=== PATIENT | male | born 1950 | race Caucasian/White ===

== ENCOUNTER 2019-03-29 07:42 | Inpatient (IN) | payer OTHER ==
[~2019-03-29] VITALS: Ht 172.7 cm; Wt 73.9 kg
--- NOTE | 2019-03-29 08:14 | PHYS DOC ---
Adult General Chief Complaint Chief Complaint: depressed HPI HPI 68-year-old male arrives via EMS from his care facility for suicidal ideation. When I asked the patient if he's having thoughts of hurting himself and he denies this. The patient does admit that he is depressed. He states that he has several sores and is not able to get up and walk around and this is very troublesome for him. He wants to get better medically. He was tearful couple times during our discussion. Patient was in a less than ideal care situation recently. He has multiple bed sores. The patient denies any intent to harm himself. He has no plan. He denies fever or chills. Review of Systems Review of Systems Constitutional: Denies fever or chills. Generalized weakness. [] Eyes: Denies change in visual acuity, redness, or eye pain [] HENT: Denies nasal congestion or sore throat [] Respiratory: Denies cough or shortness of breath [] Cardiovascular: No additional information not addressed in HPI [] GI: Denies abdominal pain, nausea, vomiting, bloody stools or diarrhea [] : Denies dysuria or hematuria [] Musculoskeletal: Denies back pain or joint pain [] Integument: Multiple sores[] Neurologic: Denies headache, focal weakness or sensory changes [] Endocrine: Denies polyuria or polydipsia [] All other systems were reviewed and found to be within normal limits, except as documented in this note. Physical Exam Physical Exam Constitutional: Well developed, well nourished, no acute distress, non-toxic appearance. [] HENT: Normocephalic, atraumatic, bilateral external ears normal, oropharynx moist, no oral exudates, nose normal. [] Eyes: PERRLA, EOMI, conjunctiva normal, no discharge. [] Neck: Normal range of motion, no tenderness, supple, no stridor. [] Cardiovascular:Heart rate regular rhythm, no murmur [] Lungs & Thorax: Bilateral breath sounds clear to auscultation [] Abdomen: Bowel sounds normal, soft, no tenderness, no masses, no pulsatile masses. [] Skin: Multiple pressure ulcers with clean pressure reduction dressings. Bilateral hips, knees. Grade 1 pressure ulcer right ankle, buttocks without dressings. Grade 2 ulcer posterior scalp.[] Back: No tenderness, no CVA tenderness. [] Extremities: No tenderness, no cyanosis, no clubbing, ROM intact, no edema. [] Neurologic: Alert and oriented X 3, normal motor function, normal sensory function, no focal deficits noted. [] Psychologic: Affect normal, judgement normal, mood depressed. [] EKG EKG [] Radiology/Procedures Radiology/Procedures [] Course & Med Decision Making Course & Med Decision Making Pertinent Labs and Imaging studies reviewed. (See chart for details) Review of the charts in by the care facility says the patient has been yelling out at night. He is making statements like I want to . I need to . He was only at this facility for 1 day. The patient is on Seroquel, but no other psychiatric medications. He does have Parkinson's disease and is on carbidopa levodopa. The patient's labs have some abnormalities, but no acute concerns. She labs for more details. The psychiatric evaluation does recommend involuntary admission. As the patient's decubitus ulcers prevent him from being admitted to a psychiatric facility. He will need to go to a more skilled facility or her stay in the hospital to improve his wounds prior to any psychiatric admission. We will see if he can be admitted to [facility]. I spoke with Dr. Mcdowell and she has accepted the patient for transfer and admission to [facility]. The patient is willing to go. Administration determined it would be more appropriate for the patient to stay at this facility with consults to wound care and possibly psych. I spoke with Dr. Freedman about the patient and he has accepted him for admission. The patient was agreeable with this plan as well. [] Dragon Disclaimer Dragon Disclaimer This electronic medical record was generated, in whole or in part, using a voice recognition dictation system. Departure Departure: Impression: Primary Impression: Decubitus ulcer Additional Impression: Depression Disposition: ADMITTED INPATIENT Admitting Physician: Young Freedman Condition: STABLE Referrals: JENNIFER CARRION MD (PCP) Problem Qualifiers Primary Impression: Decubitus ulcer Pressure injury location: hip Pressure injury stage: unstageable Additional Impression: Depression Depression Type: major depressive disorder Major depression recurrence: unspecified whether recurrent Active/Remission status: currently active Major depression episode severity: moderate Qualified Codes: F32.1 - Major depressive disorder, single episode, moderate PATRICIA LOPES DO Mar 29, 2019 08:14
[2019-03-29 08:33] LABS: BASO # 0.1 x10^3/uL (0.0-0.2); BASO % 1 % (0-3); EOS # 0.2 x10^3/uL (0.0-0.7); EOS % 3 % (0-3); HEMATOCRIT 31.2 % (39.0-53.0); HEMOGLOBIN 10.1 g/dL (13.0-17.5); LYMPH % 12 % (24-48); MEAN CORPUSCULAR HEMOGLOBIN 28 pg (25-35); MEAN CORPUSCULAR HGB CONC 32 g/dL (31-37); MEAN CORPUSCULAR VOLUME 86 fL (79-100); MONO # 0.9 x10^3/uL (0.0-1.1); MONO % 11 % (0-9); NEUT % 74 % (31-73); PLATELET COUNT 183 x10^3/uL (140-400); RED BLOOD COUNT 3.65 x10^6/uL (4.30-5.70); RED CELL DISTRIBUTION WIDTH 15.9 % (11.5-14.5); WHITE BLOOD COUNT 8.1 x10^3/uL (4.0-11.0)
[2019-03-29 08:37] LABS: ALBUMIN 2.2 g/dL (3.4-5.0); ALBUMIN/GLOBULIN RATIO 0.4 (1.0-1.7); CALCIUM 8.2 mg/dL (8.5-10.1); CREATININE 1.2 mg/dL (0.7-1.3); GFR 60.2; TOTAL BILIRUBIN 0.3 mg/dL (0.2-1.0); TOTAL PROTEIN 7.3 g/dL (6.4-8.2)
[2019-03-29 09:43] LABS: BILIRUBIN,URINE NEG (NEG); CLARITY,URINE HAZY; COLOR,URINE YELLOW; GLUCOSE,URINE NEG (NEG); UROBILINOGEN,URINE 0.2 mg/dL (0.2 mg/dL)
[2019-03-29 09:44] LABS: BACTERIA,URINE 0 /HPF (0-FEW); NITRITE,URINE NEG (NEG); RBC,URINE >40 /HPF (0-2); SQUAMOUS EPITHELIAL CELL,UR OCC /LPF; WBC,URINE 0 /HPF (0-4)
[2019-03-29] MEDS: LORazepam 1 MG TABLET PO ONE ×2 (12:45→13:43)
[2019-03-29 15:09] VITALS: BP 150/78
[2019-03-29] MEDS ORDERED: ATOR20TA58 PO (15:28)
[2019-03-29] MEDS ORDERED: ROPI4TAB6 PO (16:13)
[2019-03-29] MEDS ORDERED: ASCO500C PO (16:13)
[2019-03-29] MEDS ORDERED: CARB1TAB47 PO (16:13)
[2019-03-29] MEDS ORDERED: MULT1TAB90 PO (16:13)
[2019-03-29] MEDS ORDERED: QUET25TA5 PO (16:13)
--- NOTE | 2019-03-29 18:11 | HP ---
ADMIT DATE: 03/29/2019 HISTORY OF PRESENT ILLNESS: The patient is a 68-year-old male patient who apparently was discharged from [facility] recently and was admitted to [facility]. He was sent to the Emergency Room of [facility] for suicidal ideation; however, the patient himself has denied any thoughts of hurting himself. The patient does admit that he is depressed and he stated that he has several sores and he is not able to get up or walk around. This is very troublesome for him. He wants to get better medically. He was tearful a couple of times during discussion. He denies any intent to harm himself. He has no plans. He denies any other complaint other than being weak and unable to walk. PAST MEDICAL HISTORY: Significant for Parkinson's disease, hyperlipidemia, has restless leg syndrome, unspecified psychosis, has multiple decubitus ulcers. PAST SURGICAL HISTORY: Unremarkable. ALLERGIES: He has no known drug allergies. MEDICATIONS: He is currently on following medications: He is on atorvastatin calcium 20 mg once a day, quetiapine fumarate 25 mg at bedtime, carbidopa/levodopa 25/100 one tablet 4 times a day, ropinirole 4 mg twice a day, ascorbic acid 500 mg once a day, and multivitamin with mineral 1 tablet once a day. FAMILY HISTORY: Unremarkable. SOCIAL HISTORY: He apparently lives in a house that is uninhabitable. He has no family. He makes his own decisions. 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 REVIEW OF SYSTEMS: As per history of present illness. PHYSICAL EXAMINATION: GENERAL: On examining him, he looked somewhat pale, but no jaundice, cyanosis or thyromegaly. No jugular venous distention. No limb edema. VITAL SIGNS: His heart rate was 80, blood pressure was around 150/78, temperature was 98.4, respiratory rate was 18 and oxygen saturation was 98% on room air. HEAD, EYES, EARS, NOSE AND THROAT: Showed normocephalic, atraumatic. NECK: Supple. HEART: Showed normal first and second heart sounds. No gallop or murmur. CHEST: Clear to auscultation. No crepitation, rhonchi. ABDOMEN: Distended, soft, nontender. No guarding or rigidity. No organomegaly. All hernial orifice intact. Bowel sounds normal. NEUROLOGIC: He is awake, alert, but very delusional and hallucinating. All his cranial nerves are intact. He moves his upper extremities to much good extent than lower extremities. He has decubitus ulcers in the inner and outer aspect of the left knee, left trochanteric area as well as right trochanteric area. LABORATORY DATA: His lab work showed a white cell count of 8100, hemoglobin 10, hematocrit 31, MCV 86, and platelet count of 183,000 with normal manual differential. Serum sodium was 139, potassium 4, chloride 104, bicarbonate 29, anion gap of 6, BUN 16, creatinine 1.2, estimated GFR was 60 mL per minute, his glucose was 113, calcium was 8.2. Total bilirubin, AST, ALT, alkaline phosphatase were normal. Total protein was 7.3, albumin was 2.2. His urinalysis showed the urine was yellow, hazy with a pH of 7, specific gravity of 1.010. The urine was negative for protein, glucose, ketones, large amount of blood, negative for nitrite and leukocyte esterase. There is more than 40 rbc's, no wbc's, and no bacteria. IMPRESSION: In summary, this is a 68-year-old male patient with Parkinson's disease and marked debility and weakness. He was admitted on account of suicidal ideation. The patient himself admits to being depressed given the fact that he is weak and unable to walk with developed multiple bedsores, however, he has no intent to harm himself. The nursing staff, however, stated that he is delusional and hallucinating, talking to people that was not there. He has multiple sores on both trochanteric area as well as both knee joints. PLAN: My plan is obviously to x-ray his hips and knee joints and check his sedimentation rate and CRP and perhaps order a bone scan and consult Dr. Ramos to evaluate the patient for his delusions and hallucinations as well as possible suicidal ideation. We will continue obviously with all of his medications. COCO HOOKS MD DR: XIOMARA/que JOB#: [id number] / [id number]
--- NOTE | 2019-03-29 18:41 | PDOC ---
Exam Note: Ignacio Note: Please also refer to the separate dictated note~for this date of service dictated separately.~Patient seen individually. Discussed the patient with Nursing staff reviewed the chart.~Reviewed interim history and current functioning. Reviewed vital signs,~Labs/ Radiology~and current medications noted below. Continue current treatment with the changes noted in the dictated addendum note Assessment: Vital Signs/I&O: Vital Signs Date Time Temp Pulse Resp B/P (MAP) Pulse Ox O2 Delivery O2 Flow Rate FiO2 03/29/19 15:09 98.4 80 18 150/78 (102) 98 Room Air Labs: Laboratory Tests Test 03/29/19 08:05 03/29/19 08:50 White Blood Count 8.1 x10^3/uL (4.0-11.0) Red Blood Count 3.65 x10^6/uL (4.30-5.70) L Hemoglobin 10.1 g/dL (13.0-17.5) L Hematocrit 31.2 % (39.0-53.0) L Mean Corpuscular Volume 86 fL (79-100) Mean Corpuscular Hemoglobin 28 pg (25-35) Mean Corpuscular Hemoglobin Concent 32 g/dL (31-37) Red Cell Distribution Width 15.9 % (11.5-14.5) H Platelet Count 183 x10^3/uL (140-400) Neutrophils (%) (Auto) 74 % (31-73) H Lymphocytes (%) (Auto) 12 % (24-48) L Monocytes (%) (Auto) 11 % (0-9) H Eosinophils (%) (Auto) 3 % (0-3) Basophils (%) (Auto) 1 % (0-3) Neutrophils # (Auto) 6.0 x10^3uL (1.8-7.7) Lymphocytes # (Auto) 1.0 x10^3/uL (1.0-4.8) Monocytes # (Auto) 0.9 x10^3/uL (0.0-1.1) Eosinophils # (Auto) 0.2 x10^3/uL (0.0-0.7) Basophils # (Auto) 0.1 x10^3/uL (0.0-0.2) Sodium Level 139 mmol/L (136-145) Potassium Level 4.0 mmol/L (3.5-5.1) Chloride Level 104 mmol/L (98-107) Carbon Dioxide Level 29 mmol/L (21-32) Anion Gap 6 (6-14) Blood Urea Nitrogen 16 mg/dL (8-26) Creatinine 1.2 mg/dL (0.7-1.3) Estimated GFR (Cockcroft-Gault) 60.2 BUN/Creatinine Ratio 13 (6-20) Glucose Level 113 mg/dL (70-99) H Calcium Level 8.2 mg/dL (8.5-10.1) L Total Bilirubin 0.3 mg/dL (0.2-1.0) Aspartate Amino Transferase (AST) 45 U/L (15-37) H Alanine Aminotransferase (ALT) 14 U/L (16-63) L Alkaline Phosphatase 74 U/L (46-116) Total Protein 7.3 g/dL (6.4-8.2) Albumin 2.2 g/dL (3.4-5.0) L Albumin/Globulin Ratio 0.4 (1.0-1.7) L Urine Collection Type Unknown Urine Color Yellow Urine Clarity Hazy Urine pH 7.0 Urine Specific [place] 1.010 Urine Protein Neg (NEG-TRACE) Urine Glucose (UA) Neg mg/dL (NEG) Urine Ketones (Stick) Neg mg/dL (NEG) Urine Blood Large (NEG) Urine Nitrite Neg (NEG) Urine Bilirubin Neg (NEG) Urine Urobilinogen Dipstick 0.2 mg/dL (0.2 mg/dL) Urine Leukocyte Esterase Neg (NEG) Urine RBC >40 /HPF (0-2) Urine WBC 0 /HPF (0-4) Urine Squamous Epithelial Cells Occ /LPF Urine Bacteria 0 /HPF (0-FEW) Current Medications: Meds: Current Medications Medications (Trade) Dose Ordered Sig/Rajendra Route PRN Reason Start Time Stop Time Status Last Admin Dose Admin Lorazepam (Ativan) 1 mg 1X ONCE PO 03/29/19 12:45 03/29/19 12:48 DC 03/29/19 13:44 I have reviewed the current psychotropics carefully including drug interactions. Risk benefit ratio favors no change other than as noted in my dictated progress note. Diagnosis: Problems: (1) Anxiety disorder (2) Major depressive disorder, recurrent episode MARCELA AWAN MD Mar 29, 2019 18:41
[2019-03-29 19:15] VITALS: BP 102/67
[2019-03-29] MEDS: rOPINIRole 2 MG TABLET. PO SCH (20:49)
[2019-03-29] MEDS: QUEtiapine 25 MG TABLET. PO SCH (20:50)
--- NOTE | 2019-03-29 22:02 | RAD ---
AP pelvis to include AP and lateral radiographs of both hips 03/29/2019 CLINICAL HISTORY: Bilateral decubitus ulcers. An AP digital radiograph of the pelvis to include both hips was obtained. AP and lateral digital radiographs of both hips were obtained. No pelvic bone fracture is seen. No fracture or dislocation of either hip is noted. Mild to moderate degenerative changes are seen involving both SI joints and both hips. Atherosclerotic calcification of the common iliac arteries and their branches is noted. There is no radiographic evidence of osteomyelitis. IMPRESSION: No acute osseous abnormality is seen. Electronically signed by: Jeff Carrera MD (03/29/2019 9:59 PM) [facility]
--- NOTE | 2019-03-29 22:05 | RAD ---
3 view bilateral knee radiographs 03/29/2019 CLINICAL HISTORY: Bilateral knee pain. AP, lateral and oblique digital radiographs of both knees were obtained. No fracture or dislocation of either knee is seen. Surgical clips are seen posterior to the left knee. Mild degenerative changes are seen involving all 3 compartments of the left knee. Atherosclerotic calcification of the popliteal arteries is noted. IMPRESSION: No acute osseous abnormality is seen. Electronically signed by: Jeff Carrera MD (03/29/2019 10:02 PM) [facility]
[2019-03-29] MEDS: hydrOXYzine HCL 25 MG TABLET PO PRN (23:36)
[2019-03-29] MEDS: CARBIDOPA/LEVODOPA 25/100MG TABLET PO SCH (23:36)
[2019-03-29] MEDS: traZODone 50 MG TABLET. PO PRN (23:36)
[2019-03-30] MEDS: CARBIDOPA/LEVODOPA 25/100MG TABLET PO SCH ×3 (06:13→17:01)
[2019-03-30 06:19] VITALS: BP 124/67
[2019-03-30 07:20] LABS: C REACTIVE PROTEIN 66.8 mg/L (0-3.3); CALCIUM 8.1 mg/dL (8.5-10.1); GFR 74.3; POTASSIUM 3.6 mmol/L (3.5-5.1)
[2019-03-30 10:37] VITALS: BP 156/78
[2019-03-30] MEDS: MULTIVITAMIN with MINERAL TABLET. PO SCH (10:53)
[2019-03-30] MEDS: rOPINIRole 2 MG TABLET. PO SCH ×2 (10:53→21:38)
[2019-03-30] MEDS: ASCORBIC ACID 500 MG TABLET PO SCH (10:53)
[2019-03-30] MEDS: hydrOXYzine HCL 25 MG TABLET PO PRN ×2 (10:54→17:02)
[2019-03-30] MEDS: ATORVASTATIN CALCIUM 20 MG TABLET PO SCH (10:54)
--- NOTE | 2019-03-30 12:00 | PN ---
DATE: 03/29/2019 SUBJECTIVE: The patient is resting, slightly propped up in bed, in no apparent distress, continued to be confused, hallucinating; however, denied any abdominal pain. He has multiple wounds in his right trochanteric area and both knee joints. PHYSICAL EXAMINATION: GENERAL: When I examined him this morning, he looked pale, but no jaundice, cyanosis or thyromegaly. No jugular venous distention. No lower limb edema. VITAL SIGNS: His heart rate was 70, blood pressure was 156/78, temperature was 97.5, respiratory rate 20, and oxygen saturation was 97%. HEAD, EYES, EARS, NOSE AND THROAT: Showed normocephalic, atraumatic. NECK: Supple. HEART: Showed normal first and second heart sounds with no gallop, rub or murmur. CHEST: Clear to auscultation. No crepitation or rhonchi. ABDOMEN: Distended, soft, nontender. No guarding or rigidity. No organomegaly. All hernial orifices intact. Bowel sounds normal. NEUROLOGIC: He was awake, alert, confused. All his cranial nerves are intact. He moves upper extremities to much good extent than lower extremities. He is mostly bed bound. His intake over the last 24 hours and output are incompletely recorded. LABORATORY DATA: Lab work showed a serum sodium 139, potassium 3.6, chloride 105, bicarbonate 26, anion gap of 8, BUN 21, creatinine 1, estimated GFR was 74 mL per minute, his glucose was 88, calcium was 8.1. C-reactive protein was 6.8. His sedimentation rate was 72 mm per hour. Urinalysis was essentially unremarkable. ASSESSMENT: This is a 68-year-old male patient who was admitted with possible suicidal ideation, although the patient himself admits to being depressed, given the fact that he is weak and unable to walk, developed multiple bedsores; however, he has no intent of harming himself according to him. The patient, however, is delusional, hallucinating, talking to people that are not there, and he has multiple medical problems including: A. Parkinson's disease. B. Functional paraplegia. C. Multiple pressure sores on both trochanteric area and both knee joints. My plan is to await result of the bone scan to see if there is any evidence of osteomyelitis and to start him on IV antibiotic if necessary. We did x-rays of his hip and pelvis, it showed that the patient has no fracture or dislocation of either hip is noted. [id number] degenerative changes are seen involving both thigh joints and both hips. He has atherosclerotic calcification of the common iliac arteries and their branches noted. There is no radiographic evidence for osteomyelitis and we did x-rays of both knee joints and again no evidence of osseous abnormalities seen. PLAN: To continue with all these. We will continue with all her medication and we did consult Dr. Ramos as he is delusional and hallucinating. COCO HOOKS MD DR: XIOMARA/que JOB#: [id number] / [id number]
[2019-03-30 15:10] VITALS: BP 117/76
--- NOTE | 2019-03-30 19:02 | PDOC ---
Exam Note: Ignacio Note: Please also refer to the separate dictated note~for this date of service dictated separately.~Patient seen individually. Discussed the patient with Nursing staff reviewed the chart.~Reviewed interim history and current functioning. Reviewed vital signs,~Labs/ Radiology~and current medications noted below. Continue current treatment with the changes noted in the dictated addendum note Assessment: Vital Signs/I&O: Vital Signs Date Time Temp Pulse Resp B/P (MAP) Pulse Ox O2 Delivery O2 Flow Rate FiO2 03/30/19 15:10 97.3 73 20 117/76 (90) 97 Room Air I & O 03/29/19 03/29/19 03/30/19 15:00 23:00 07:00 Intake Total 300 ml Balance 300 ml Labs: Laboratory Tests Test 03/30/19 06:46 Erythrocyte Sedimentation Rate 72 (0-15) H Sodium Level 139 mmol/L (136-145) Potassium Level 3.6 mmol/L (3.5-5.1) Chloride Level 105 mmol/L (98-107) Carbon Dioxide Level 26 mmol/L (21-32) Anion Gap 8 (6-14) Blood Urea Nitrogen 21 mg/dL (8-26) Creatinine 1.0 mg/dL (0.7-1.3) Estimated GFR (Cockcroft-Gault) 74.3 Glucose Level 88 mg/dL (70-99) Calcium Level 8.1 mg/dL (8.5-10.1) L C-Reactive Protein 66.8 mg/L (0-3.3) H Current Medications: Meds: Current Medications Medications (Trade) Dose Ordered Sig/Rajendra Route PRN Reason Start Time Stop Time Status Last Admin Dose Admin Atorvastatin Calcium (Lipitor) 20 mg DAILY PO 03/30/19 09:00 03/30/19 10:55 Multivitamins/ Calcium (Thera-M Plus) 1 tab DAILY PO 03/30/19 09:00 03/30/19 10:55 Quetiapine Fumarate (SEROquel) 25 mg QHS PO 03/29/19 21:00 03/29/19 20:52 Ascorbic Acid (Vitamin C) 500 mg DAILY PO 03/30/19 09:00 03/30/19 10:55 Carbidopa/Levodopa (Sinemet 25/100) 1 tab [id number] PO 03/30/19 00:00 03/30/19 17:02 Ropinirole HCl (Requip) 4 mg BID PO 03/29/19 21:00 03/30/19 10:55 Olanzapine (ZyPREXA ZYDIS) 5 mg PRN Q2HR PRN PO PSYCHOSIS 03/29/19 22:00 03/30/19 17:02 Hydroxyzine HCl (Atarax) 25 mg PRN Q4HRS PRN PO ANXIETY / AGITATION 03/29/19 22:00 03/30/19 17:02 Trazodone HCl (Desyrel) 50 mg PRN QHS PRN PO INSOMNIA, MAY REPEAT X1 03/29/19 22:00 03/29/19 23:36 I have reviewed the current psychotropics carefully including drug interactions. Risk benefit ratio favors no change other than as noted in my dictated progress note. Diagnosis: Problems: (1) Dementia, vascular, with delusions (2) Dementia, vascular, with depression (3) Dementia in Alzheimer's disease with delusions (4) Dementia in Alzheimer's disease with depression (5) Impulse control disorder (6) Major depressive disorder, recurrent episode (7) Anxiety disorder MARCELA AWAN MD Mar 30, 2019 19:02
[2019-03-30 19:04] VITALS: BP 135/74
[2019-03-30] MEDS: traZODone 50 MG TABLET. PO PRN (21:38)
[2019-03-30] MEDS: QUEtiapine 25 MG TABLET. PO SCH (21:38)
--- NOTE | 2019-03-31 00:11 | CONS ---
DATE OF CONSULTATION: 03/29/2019 PSYCHIATRIC CONSULTATION This late entry 03/29/2019 covers elements not covered in my initial note 03/29/2019. IDENTIFYING DATA: The patient is a 68-year-old male seen on [address] [place] [address] for a psychiatric consult requested by Dr. Freedman on account of the patient's confusion, hallucinations, agitation, restlessness. The patient was seen individually, discussed with nursing staff, reviewed the chart. CHIEF COMPLAINT: "I need to leave." The patient was lying in bed, constantly moving, trying to get out of his bed, possibly actively hallucinating at times. HISTORY OF PRESENT ILLNESS: The patient was apparently discharged from [facility] recently admitted to [facility]. While at [facility], he had expressed suicidal ideation per staff, though the patient denies any thoughts of hurting himself. He does admit to being depressed about the fact that he has several sores and not able to get up or walk around. He has been tearful at times. Reportedly, he was hallucinating, talked about having a cord around the neck of dog. REVIEW OF SYSTEMS: No clear history of bipolar disorder. PAST PSYCHIATRIC HISTORY: Positive for progressive memory deficits hallucinations, depressive symptoms. MEDICAL HISTORY: Positive for Parkinson's disease, hyperlipidemia, restless leg syndrome, multiple decubitus ulcers. PAST SURGICAL HISTORY: Unremarkable. ALLERGIES: Negative. CURRENT PSYCHOTROPICS: Seroquel 25 mg at bedtime. He is also on Sinemet, Requip. FAMILY HISTORY: Noncontributory. SOCIAL HISTORY: The patient reportedly lives in a house that is uninhabitable. He has no family, but as I questioned him, he said he has a sister Melody, who lives in [place], [place], but she uses drugs and he has no contact with her. He states staff from [facility] come into his home to assist him. REVIEW OF SYSTEMS: Ambulation impaired. No CV, , pulmonary, eye, ENT system symptoms on review. Reliability poor. MENTAL STATUS EXAMINATION: The patient is oriented to himself. He felt the year was 1998, felt Harris was the president later corrected it to President Solo. Speech coherent, rapid, abstraction fair, computation impaired, language function intact, attention span short. Mood and affect remains labile. LABORATORY DATA: Reviewed. IMPRESSION: Major neurocognitive disorder, multifactorial, possibly Lewy body, Alzheimer, vascular with delusion, depression, behavioral disturbance; anxiety disorder, unspecified; impulse control disorder, unspecified. Rest as above plan. RECOMMENDATIONS: From a psychiatric standpoint, we will go ahead and add Zyprexa p.r.n. 2.5 mg q. 2 hours p.r.n. psychosis, agitation. Around midnight nursing staff had called me, he was increasingly agitated despite the Zyprexa p.r.n., we will increase it to 5 mg with a maximum of 20 mg in 24 hours and added trazodone 50 mg at bedtime p.r.n., may repeat x 1 and hydroxyzine p.r.n. We will make further adjustments as clinically indicated. Dr. Freedman, thank you for the opportunity to participate in your patient's care. We will follow with you. MARCELA AWAN MD DR: UBALDO/que JOB#: [id number] / [id number]
[2019-03-31] MEDS: CARBIDOPA/LEVODOPA 25/100MG TABLET PO SCH ×4 (00:46→16:56)
[2019-03-31 06:37] VITALS: BP 124/76
--- NOTE | 2019-03-31 07:36 | RAD ---
Examination: BONE SCAN 3 PHASE History: Multiple pressure sores involving the knees and hips. Comparison/Correlation: 03/29/2019 bilateral knee x-ray exam Findings: 25 mCi technetium 99m MDP was intravenously administered for purposes of 3 phase bone scintigraphy limited to the knees primarily. Uptake of radiotracer in the blood flow and blood pool phases is unremarkable. Uptake of radiotracer involving the left medial femoral condyle on posterior projection and lateral projection imaging noted on delayed phase imaging and is of indeterminate significance. Uptake involving the right medial compartment on the posterior projection image is noted. Delayed anterior and posterior projection views of the pelvis are unremarkable. Impression: No evidence of osteomyelitis about the knees. Nonspecific uptake and delayed phase images noted. This is greater than expected compared to the extent of degenerative change noted on the 03/29/2019 x-ray exam. Electronically signed by: Vinh James MD (03/31/2019 7:33 AM) [facility]
[2019-03-31] MEDS: MULTIVITAMIN with MINERAL TABLET. PO SCH (08:27)
[2019-03-31] MEDS: rOPINIRole 2 MG TABLET. PO SCH ×2 (08:27→21:34)
[2019-03-31] MEDS: ATORVASTATIN CALCIUM 20 MG TABLET PO SCH (08:27)
[2019-03-31] MEDS: hydrOXYzine HCL 25 MG TABLET PO PRN ×3 (08:27→21:34)
[2019-03-31] MEDS: ASCORBIC ACID 500 MG TABLET PO SCH (08:27)
[2019-03-31 11:00] VITALS: BP 122/72
[2019-03-31] MEDS ORDERED: VANCOMYCIN 2 GM in IV NORMAL SALINE 500ML 500 ML IV ONE (13:00)
[2019-03-31] MEDS: PIPERACILLIN/TAZOBACTAM 3.375 GM in IV NORMAL SALINE 50ML 50 ML IV SCH ×2 (13:37→21:36)
[2019-03-31] MEDS: VANCOMYCIN PER PHARMACY MC PRN (14:13)
[2019-03-31 15:30] VITALS: BP 129/71
[2019-03-31 20:10] VITALS: BP 139/84
--- NOTE | 2019-03-31 20:22 | PDOC ---
Exam Note: Ignacio Note: Please also refer to the separate dictated note~for this date of service dictated separately.~Patient seen individually. Discussed the patient with Nursing staff reviewed the chart.~Reviewed interim history and current functioning. Reviewed vital signs,~Labs/ Radiology~and current medications noted below. Continue current treatment with the changes noted in the dictated addendum note Assessment: Vital Signs/I&O: Vital Signs Date Time Temp Pulse Resp B/P (MAP) Pulse Ox O2 Delivery O2 Flow Rate FiO2 03/31/19 20:10 97.9 77 20 139/84 (102) 99 Room Air I & O 03/30/19 03/30/19 03/31/19 15:00 23:00 07:00 Intake Total 360 ml 720 ml Balance 360 ml 720 ml Current Medications: Meds: Current Medications Medications (Trade) Dose Ordered Sig/Rajendra Route PRN Reason Start Time Stop Time Status Last Admin Dose Admin Vancomycin HCl (Vanco Per Pharmacy) 1 each PRN DAILY PRN MC SEE COMMENTS 03/31/19 12:30 03/31/19 14:13 Piperacillin Sod/ Tazobactam Sod 3.375 gm/Sodium Chloride 50 ml @ 100 mls/hr Q8HRS IV 03/31/19 14:00 03/31/19 13:37 Vancomycin HCl 2 gm/Sodium Chloride 500 ml @ 250 mls/hr 1X ONCE IV 03/31/19 13:00 03/31/19 14:59 DC 03/31/19 13:37 I have reviewed the current psychotropics carefully including drug interactions. Risk benefit ratio favors no change other than as noted in my dictated progress note. Diagnosis: Problems: (1) Dementia in Alzheimer's disease with delusions (2) Dementia in Alzheimer's disease with depression (3) Dementia, vascular, with delusions (4) Dementia, vascular, with depression (5) Impulse control disorder (6) Major depressive disorder, recurrent episode (7) Anxiety disorder MARCELA AWAN MD Mar 31, 2019 20:22
--- NOTE | 2019-03-31 21:11 | PN ---
DATE: 03/30/2019 PSYCHIATRIC PROGRESS NOTE This late entry 03/30/2019 covers elements not covered in my initial note. SUBJECTIVE: I met with the patient in the evening of 03/30/2019. Since my visit with the patient on 03/29/2019, nursing staff had called me late at night of 03/29/2019. The patient was increasingly agitated, anxious, restless, still he is trying to get out of his bed. We did add Zyprexa p.r.n., trazodone p.r.n. for insomnia and hydroxyzine since he failed the lower dosage of Zyprexa 2.5 mg and this was increased to 5 mg p.r.n. He has done better since then. He remains confused; however, but certain elements of his history, he is able to relate better than before. REVIEW OF SYSTEMS: Ambulation impaired. No CV, , pulmonary, eye system symptoms on review. Reliability is poor. MENTAL STATUS EXAM: Oriented to himself. Insight, judgment, recent and remote memory, attention, concentration, fund of knowledge poor, consistent with his diagnosis mentioned in my initial note. PLAN: No change from initial note. MAN Adriana AWAN MD DR: UBALDO/que JOB#: [id number] / [id number]
[2019-03-31] MEDS: traZODone 50 MG TABLET. PO PRN (21:33)
[2019-03-31] MEDS: QUEtiapine 25 MG TABLET. PO SCH (21:34)
[2019-03-31 22:56] VITALS: BP 113/68
--- NOTE | 2019-03-31 23:03 | PN ---
DATE: 03/31/2019 SUBJECTIVE: The patient is resting, slightly propped up in bed, in no apparent distress. He is awake, alert, at times confused. He is and was seen by Dr. Ramos, who started him on Zyprexa as well as trazodone. He has had x-ray of his knees and hip joints, which showed no evidence of osteomyelitis. We did also a bone scan of his knees and hip joints and showed no evidence of osteomyelitis about the knees, nonspecific uptake on delayed phase images noted. This is greater than expected compared to the extent of degenerative changes noted on 03/29/2019. PHYSICAL EXAMINATION: GENERAL: When I examined him, he looked pale, but no jaundice, cyanosis or thyromegaly. No jugular venous distention. No limb edema. VITAL SIGNS: His heart rate was 84, blood pressure was 124/76, temperature was 98, respiratory rate was 20 and oxygen saturation was 93%. HEAD, EYES, EARS, NOSE AND THROAT: Showed normocephalic, atraumatic. NECK: Supple. CARDIAC: Normal first and second heart sounds with no gallop or murmur. CHEST: Clear to auscultation. No crepitation or rhonchi. ABDOMEN: Distended, soft, nontender. NEUROLOGIC: He was demented; however, all his cranial nerves are intact. She moves upper extremities without difficulty. He has what seems to be flexed contraction of both knee joints. He has large stage 4 decubitus ulcer on the left trochanteric area and outer aspect of left knee and a smaller, probably stage 2 decubitus ulcer on the medial aspect of the right knee. His intake over the last 24 hours was 1100, no output was recorded. LABORATORY DATA: As of yesterday, his serum sodium was 139, potassium 3.6, chloride 105, bicarbonate 26, anion gap of 8, BUN 21, creatinine 1, estimated GFR was 74 mL per minute, his glucose was 88, calcium was 8.1. His C-reactive protein was 66.8 and sedimentation rate was 72 mm per hour. ASSESSMENT: 1. Major neurocognitive disorder, multifactorial, possible Lewy body, Alzheimer, vascular with delusion, depression, behavioral disturbances, for which he was seen by Dr. Ramos. He is now on Zyprexa 2.5 mg every 2 hours. He is also on trazodone 50 mg at bedtime and hydroxyzine as needed. 2. Advanced Parkinson's disease. 3. Functional paraplegia. 4. He has multiple pressure sores in the left trochanteric area and both knee joints and x-rays and bone scan showed no evidence of any osteomyelitis; however, given the extent of ulcers and necrotic tissue and surrounding erythema, I will start him on IV vancomycin as well as Zosyn. 5. Given the fact that the patient is his own decision maker and that he has severe neurocognitive disorder, we will consult case advocate to start the process of guardianship. COCO HOOKS MD DR: XIOMARA/que JOB#: [id number] / [id number]
[2019-04-01] MEDS: CARBIDOPA/LEVODOPA 25/100MG TABLET PO SCH ×5 (00:29→23:25)
[2019-04-01] MEDS: VANCOMYCIN 1.25 GM in IV NORMAL SALINE 250ML 250 ML IV SCH ×2 (01:00→12:58)
[2019-04-01] MEDS: PIPERACILLIN/TAZOBACTAM 3.375 GM in IV NORMAL SALINE 50ML 50 ML IV SCH ×3 (05:23→20:50)
[2019-04-01 05:44] VITALS: BP 114/71
[2019-04-01] MEDS: ATORVASTATIN CALCIUM 20 MG TABLET PO SCH (09:41)
[2019-04-01] MEDS: MULTIVITAMIN with MINERAL TABLET. PO SCH (09:41)
[2019-04-01] MEDS: rOPINIRole 2 MG TABLET. PO SCH ×2 (09:41→20:49)
[2019-04-01] MEDS: ASCORBIC ACID 500 MG TABLET PO SCH (09:41)
[2019-04-01 09:54] VITALS: BP 119/73
[2019-04-01 14:31] VITALS: BP 134/88
--- NOTE | 2019-04-01 17:36 | RAD ---
Bilateral lower extremity arterial ultrasound History: Decreased pulses, weakness, previous smoker Findings: Multiple grayscale, color, and duplex spectral analysis sonographic images were acquired of the lower extremity arteries bilaterally. There are no previous similar exams. There is scattered plaque bilaterally. Peroneal arteries could not be visualized on either side. Otherwise there are triphasic and biphasic waveforms of the visualized vessels bilaterally. Velocities in cm/sec: RIGHT Common femoral artery 69 Profunda femoris artery 74 Proximal SFA 68 Mid SFA 82 Distal SFA 77 Popliteal artery 40 Posterior tibial artery 66 proximally and 78 distally Peroneal artery not seen Anterior tibial artery 73 Dorsalis pedis artery 68 LEFT: Common femoral artery 146 Profunda femoris artery 126 Proximal SFA 76 Mid SFA 102 Distal SFA 70 Popliteal artery 55 Posterior tibial artery 65 proximally and 73 distally Peroneal artery not seen Anterior tibial artery 36 Dorsalis pedis artery 67 Impression: 1. Peroneal arteries could not be visualized on either side. Otherwise no focal vessel occlusion is demonstrated. No significant focal stenosis is identified by velocity change. There is scattered plaque bilaterally. Electronically signed by: Bernardo Maier MD (04/01/2019 5:33 PM) [id number]
--- NOTE | 2019-04-01 18:35 | PDOC ---
Exam Note: Ignacio Note: Please also refer to the separate dictated note~for this date of service dictated separately.~Patient seen individually. Discussed the patient with Nursing staff reviewed the chart.~Reviewed interim history and current functioning. Reviewed vital signs,~Labs/ Radiology~and current medications noted below. Continue current treatment with the changes noted in the dictated addendum note Assessment: Vital Signs/I&O: Vital Signs Date Time Temp Pulse Resp B/P (MAP) Pulse Ox O2 Delivery O2 Flow Rate FiO2 04/01/19 14:31 97.8 71 20 134/88 (103) 97 Room Air I & O 03/31/19 03/31/19 04/01/19 15:00 23:00 07:00 Intake Total 480 ml 840 ml 700 ml Output Total 850 ml Balance 480 ml -10 ml 700 ml Current Medications: Meds: Current Medications Medications (Trade) Dose Ordered Sig/Rajendra Route PRN Reason Start Time Stop Time Status Last Admin Dose Admin Vancomycin HCl 1.25 gm/Sodium Chloride 250 ml @ 167 mls/hr Q12H IV 04/01/19 01:30 04/01/19 12:58 I have reviewed the current psychotropics carefully including drug interactions. Risk benefit ratio favors no change other than as noted in my dictated progress note. Diagnosis: Problems: (1) Dementia in Alzheimer's disease with delusions (2) Dementia in Alzheimer's disease with depression (3) Dementia, vascular, with delusions (4) Dementia, vascular, with depression (5) Impulse control disorder (6) Major depressive disorder, recurrent episode (7) Anxiety disorder MARCELA AWAN MD Apr 01, 2019 18:35
[2019-04-01 19:00] VITALS: BP 134/77
[2019-04-01] MEDS: hydrOXYzine HCL 25 MG TABLET PO PRN (20:49)
[2019-04-01] MEDS: QUEtiapine 25 MG TABLET. PO SCH (20:50)
[2019-04-01] MEDS: traZODone 50 MG TABLET. PO PRN ×2 (20:50→23:25)
--- NOTE | 2019-04-01 22:54 | PN ---
DATE: 04/01/2019 SUBJECTIVE: The patient is resting, propped up in his recliner, in no apparent distress. On questioning him, he denied any complaint. The nursing staff did not voice any concern and stated that he had an uneventful night. When I examined him, he looked pale, but no jaundice, cyanosis or thyromegaly. No jugular venous distention. No lower limb edema. PHYSICAL EXAMINATION: VITAL SIGNS: His heart rate was 72, blood pressure was 119/73, temperature was 97.5, respiratory rate was 20, and oxygen saturation was 95%. HEAD, EYES, EARS, NOSE AND THROAT: Showed normocephalic, atraumatic. NECK: Supple. HEART: Showed normal first and second heart sounds. No gallop or murmur. CHEST: Clear to auscultation. No crepitation or rhonchi. ABDOMEN: Scaphoid, soft, nontender. NEUROLOGICAL: He is demented, but without any obvious lateralizing sign. All his cranial nerves are intact. He moves his upper extremities without difficulty. He has multiple wounds; largest was in the left trochanteric area, the outer aspect of left knee and in the medial aspect of the right knee. We did arterial Doppler ultrasound, the result of which is still pending at the time of this dictation. His intake was 1100, no output was recorded. LABORATORY DATA: He has no lab work done today. His most recent lab work showed a white cell count of 8000, hemoglobin 10, hematocrit 30, MCV 86 and platelet count of 183,000. Chemistry showed a serum sodium 139, potassium 3.6, chloride 105, bicarbonate 26, anion gap of 8, BUN 21, creatinine 1, estimated GFR was 74 mL per minute, his glucose was 88, calcium was 8.1. C-reactive protein was 66.8 mg per liter and sed rate was 72 mm per hour. ASSESSMENT AND PLAN: 1. Major neurocognitive disorder, multifactorial, possibly Lewy body, Alzheimer vascular with delusion, depression, behavioral disturbances for which he was seen by Dr. Ramos and he is on Zyprexa and trazodone as well as hydroxyzine. 2. Advanced Parkinson disease. 3. Functional paraplegia. 4. He has multiple pressure sores on the left trochanteric area and both knee joints and x-rays and bone scan showed no evidence of osteomyelitis. Given the extent of the wounds and surrounding erythema and purulent drainage, I did start him on IV vancomycin and Zosyn. Culture has showed scant growth of Pseudomonas aeruginosa. Plan is to screen the patient to see if he qualifies to go to [facility]. COCO HOOKS MD DR: XIOMARA/que JOB#: [id number] / [id number]
[2019-04-01 23:00] VITALS: BP 127/73
--- NOTE | 2019-04-02 01:23 | PN ---
DATE: 03/31/2019 PSYCHIATRIC PROGRESS NOTE This late entry 03/31/2019 covers elements not covered in my initial note. SUBJECTIVE: I met with the patient in the evening and nursing staff had called me as an emergency earlier and we had added Zyprexa p.r.n. for his psychosis, agitation, which seemed to have helped. Per nursing report, the patient has been little less agitated, still somewhat confused, forgetful, anxious, but less so than before. REVIEW OF SYSTEMS: Ambulation impaired. No CV, , pulmonary, eye, ENT system symptoms on review. Reliability poor. He gets a little obsessive, still wants to return home. The living arrangements are precarious and we discussed at length about [facility] in [facility] or the nursing facility as step down for alf care. He seemed to comprehend part of this. MENTAL STATUS EXAMINATION: Oriented to himself, at times situation. Insight limited, judgment marginal, language function intact, attention span short. Mood and affect remain somewhat anxious, labile. LABORATORY DATA: Reviewed. IMPRESSION: Unchanged from initial note. PLAN: No change from initial note. MARCELA AWAN MD DR: UBALDO/que JOB#: [id number] / [id number]
[2019-04-02] MEDS: ACETAMINOPHEN 325 MG TABLET PO PRN ×2 (01:35→10:35)
[2019-04-02 01:57] LABS: VANC TR 28.9 mcg/mL (10.0-20.0)
[2019-04-02] MEDS: VANCOMYCIN 1.25 GM in IV NORMAL SALINE 250ML 250 ML IV SCH (02:10)
[2019-04-02 05:00] VITALS: BP 106/69
[2019-04-02] MEDS: VANCOMYCIN PER PHARMACY MC PRN (05:01)
[2019-04-02] MEDS: CARBIDOPA/LEVODOPA 25/100MG TABLET PO SCH ×3 (06:24→18:43)
[2019-04-02] MEDS: PIPERACILLIN/TAZOBACTAM 3.375 GM in IV NORMAL SALINE 50ML 50 ML IV SCH ×3 (06:24→21:02)
[2019-04-02 08:40] LABS: BASO # 0.1 x10^3/uL (0.0-0.2); BASO % 1 % (0-3); EOS # 0.4 x10^3/uL (0.0-0.7); EOS % 6 % (0-3); HEMATOCRIT 28.2 % (39.0-53.0); HEMOGLOBIN 9.1 g/dL (13.0-17.5); LYMPH # 1.3 x10^3/uL (1.0-4.8); LYMPH % 17 % (24-48); MEAN CORPUSCULAR HEMOGLOBIN 27 pg (25-35); MEAN CORPUSCULAR HGB CONC 32 g/dL (31-37); MEAN CORPUSCULAR VOLUME 84 fL (79-100); MONO # 0.7 x10^3/uL (0.0-1.1); MONO % 10 % (0-9); NEUT # 5.2 x10^3uL (1.8-7.7); NEUT % 67 % (31-73); PLATELET COUNT 227 x10^3/uL (140-400); RED BLOOD COUNT 3.35 x10^6/uL (4.30-5.70); RED CELL DISTRIBUTION WIDTH 15.9 % (11.5-14.5); WHITE BLOOD COUNT 7.8 x10^3/uL (4.0-11.0)
[2019-04-02 08:44] LABS: ALBUMIN/GLOBULIN RATIO 0.4 (1.0-1.7); CALCIUM 8.3 mg/dL (8.5-10.1); CREATININE 1.5 mg/dL (0.7-1.3); GFR 46.5; POTASSIUM 4.1 mmol/L (3.5-5.1); TOTAL BILIRUBIN 0.2 mg/dL (0.2-1.0); TOTAL PROTEIN 7.3 g/dL (6.4-8.2)
[2019-04-02] MEDS: MULTIVITAMIN with MINERAL TABLET. PO SCH (09:21)
[2019-04-02] MEDS: ASCORBIC ACID 500 MG TABLET PO SCH (09:21)
[2019-04-02] MEDS: rOPINIRole 2 MG TABLET. PO SCH ×2 (09:21→21:00)
[2019-04-02] MEDS: ATORVASTATIN CALCIUM 20 MG TABLET PO SCH (09:21)
[2019-04-02] MEDS ORDERED: METHYL SALICYLATE/MENTHOL TOPICAL OINTMENT 57GM TUBE. TP PRN (11:15)
[2019-04-02] MEDS ORDERED: IV NORMAL SALINE 500ML 500 ML IV ONE (11:45)
[2019-04-02] MEDS ORDERED: VANCOMYCIN RANDOM LEVEL. MC ONE (12:00)
[2019-04-02] MEDS: IV NORMAL SALINE 1,000ML 1,000 ML IV SCH ×2 (12:31→21:02)
[2019-04-02 16:15] VITALS: BP 124/72
[2019-04-02 19:15] VITALS: BP 118/64
[2019-04-02] MEDS: traZODone 50 MG TABLET. PO PRN (21:00)
[2019-04-02] MEDS: QUEtiapine 25 MG TABLET. PO SCH (21:00)
[2019-04-02] MEDS: hydrOXYzine HCL 25 MG TABLET PO PRN (21:00)
--- NOTE | 2019-04-02 22:07 | PDOC ---
Exam Note: Ignacio Note: Please also refer to the separate dictated note~for this date of service dictated separately.~Patient seen individually. Discussed the patient with Nursing staff reviewed the chart.~Reviewed interim history and current functioning. Reviewed vital signs,~Labs/ Radiology~and current medications noted below. Continue current treatment with the changes noted in the dictated addendum note Assessment: Vital Signs/I&O: Vital Signs Date Time Temp Pulse Resp B/P (MAP) Pulse Ox O2 Delivery O2 Flow Rate FiO2 04/02/19 20:00 Room Air 04/02/19 19:15 97.9 65 18 118/64 (82) 96 I & O 04/01/19 04/01/19 04/02/19 15:00 23:00 07:00 Intake Total 610 ml 940 ml 25 ml Output Total 300 ml Balance 610 ml 640 ml 25 ml Labs: Laboratory Tests Test 04/02/19 01:30 04/02/19 08:24 04/02/19 12:20 Vancomycin Level Trough 28.9 mcg/mL (10.0-20.0) H Vancomycin Last Dose Date 04/01/2019 Vancomycin Last Dose Time 1330 White Blood Count 7.8 x10^3/uL (4.0-11.0) Red Blood Count 3.35 x10^6/uL (4.30-5.70) L Hemoglobin 9.1 g/dL (13.0-17.5) L Hematocrit 28.2 % (39.0-53.0) L Mean Corpuscular Volume 84 fL (79-100) Mean Corpuscular Hemoglobin 27 pg (25-35) Mean Corpuscular Hemoglobin Concent 32 g/dL (31-37) Red Cell Distribution Width 15.9 % (11.5-14.5) H Platelet Count 227 x10^3/uL (140-400) Neutrophils (%) (Auto) 67 % (31-73) Lymphocytes (%) (Auto) 17 % (24-48) L Monocytes (%) (Auto) 10 % (0-9) H Eosinophils (%) (Auto) 6 % (0-3) H Basophils (%) (Auto) 1 % (0-3) Neutrophils # (Auto) 5.2 x10^3uL (1.8-7.7) Lymphocytes # (Auto) 1.3 x10^3/uL (1.0-4.8) Monocytes # (Auto) 0.7 x10^3/uL (0.0-1.1) Eosinophils # (Auto) 0.4 x10^3/uL (0.0-0.7) Basophils # (Auto) 0.1 x10^3/uL (0.0-0.2) Sodium Level 140 mmol/L (136-145) Potassium Level 4.1 mmol/L (3.5-5.1) Chloride Level 105 mmol/L (98-107) Carbon Dioxide Level 27 mmol/L (21-32) Anion Gap 8 (6-14) Blood Urea Nitrogen 36 mg/dL (8-26) H Creatinine 1.5 mg/dL (0.7-1.3) H Estimated GFR (Cockcroft-Gault) 46.5 BUN/Creatinine Ratio 24 (6-20) H Glucose Level 99 mg/dL (70-99) Calcium Level 8.3 mg/dL (8.5-10.1) L Total Bilirubin 0.2 mg/dL (0.2-1.0) Aspartate Amino Transferase (AST) 53 U/L (15-37) H Alanine Aminotransferase (ALT) 22 U/L (16-63) Alkaline Phosphatase 73 U/L (46-116) Total Protein 7.3 g/dL (6.4-8.2) Albumin 2.0 g/dL (3.4-5.0) L Albumin/Globulin Ratio 0.4 (1.0-1.7) L Random Vancomycin Level 22.9 mcg/mL Current Medications: Meds: Current Medications Medications (Trade) Dose Ordered Sig/Rajendra Route PRN Reason Start Time Stop Time Status Last Admin Dose Admin Vancomycin HCl (Vancomycin Trough Level) 1 each 1X ONCE 04/02/19 01:00 04/02/19 01:01 DC 04/02/19 01:36 Acetaminophen (Tylenol) 650 mg PRN Q6HRS PRN PO PAIN / TEMP 04/01/19 23:30 04/02/19 10:36 Vancomycin HCl (Vancomycin Random Level) 1 each 1X ONCE 04/02/19 12:00 04/02/19 12:01 DC 04/02/19 17:24 Sodium Chloride 500 ml @ 0 mls/hr 1X ONCE IV 04/02/19 11:45 04/02/19 11:46 DC 04/02/19 11:51 Sodium Chloride 1,000 ml @ 100 mls/hr Q10H IV 04/02/19 11:45 04/02/19 21:02 I have reviewed the current psychotropics carefully including drug interactions. Risk benefit ratio favors no change other than as noted in my dictated progress note. Diagnosis: Problems: (1) Anxiety disorder (2) Major depressive disorder, recurrent episode (3) Impulse control disorder (4) Dementia, vascular, with depression (5) Dementia, vascular, with delusions (6) Dementia in Alzheimer's disease with depression (7) Dementia in Alzheimer's disease with delusions MARCELA AWAN MD Apr 02, 2019 22:07
[2019-04-02 23:00] VITALS: BP 115/62
[2019-04-03] MEDS ORDERED: VANCOMYCIN RANDOM LEVEL. MC ONE
--- NOTE | 2019-04-03 00:11 | PN ---
DATE: 04/01/2019 PSYCHIATRIC PROGRESS NOTE This late entry of 04/01/2019 covers the elements not covered in my initial note. SUBJECTIVE: I met with the patient on the evening of 04/01/2019. Discussed with nursing staff. Overall, the patient has appeared to be cognitively a little bit clearer and less confused. He remains somewhat anxious with some mood lability, but the active hallucinations and the marked severe confusion seems to be better. He is tolerating his current psychotropics and awaiting possible a transfer to [facility]. REVIEW OF SYSTEMS: Ambulation impaired. No CV, , pulmonary, eye system symptoms on review. Reliability varies. MENTAL STATUS EXAM: Oriented to himself and situation. Speech is coherent, somewhat pressured, typical for him. Abstraction fair, computation impaired, language function intact, attention span short. Mood and affect is less anxious, labile. LABORATORY DATA: Reviewed. IMPRESSION: Unchanged from initial note. PLAN: No change from initial note for now. MARCELA AWAN MD DR: UBALDO/que JOB#: [id number] / [id number]
[2019-04-03] MEDS: CARBIDOPA/LEVODOPA 25/100MG TABLET PO SCH ×3 (01:00→12:28)
[2019-04-03 01:11] LABS: CALCIUM 8.1 mg/dL (8.5-10.1); CREATININE 1.4 mg/dL (0.7-1.3); GFR 50.4; POTASSIUM 3.8 mmol/L (3.5-5.1)
--- NOTE | 2019-04-03 01:56 | PN ---
DATE: SUBJECTIVE: The patient is resting, slightly propped up in bed, in no apparent distress. He is awake, alert, continuing to be confused; however, the nursing staff did not voice any concern and stated he had a generally uneventful night. PHYSICAL EXAMINATION: GENERAL: When I examined him, he looked pale, but no jaundice, cyanosis or thyromegaly. No jugular venous distention. No limb edema. VITAL SIGNS: Her heart rate was 70, blood pressure was 106/69, temperature was 98, respiratory rate was 18 and oxygen saturation was 95% on room air. HEAD, EYES, EARS, NOSE AND THROAT: Showed normocephalic, atraumatic. NECK: Supple. HEART: Showed normal first and second heart sounds with no gallop or murmur. CHEST: Clear to auscultation. No crepitation or rhonchi. ABDOMEN: Scaphoid, soft, nontender. NEUROLOGIC: He is awake, alert, obviously demented without any obvious lateralizing sign. He moves upper extremities; however, he has functional paraplegia, is also known to have Parkinson's disease, multiple wounds on the left trochanteric and outer aspect of left knee and inner aspect of the right knee. His intake over the last 24 hours was 2000, output was 850. LABORATORY DATA: His lab work this morning showed a serum sodium 140, potassium 4.1, chloride 105, bicarbonate 27, anion gap of 8, BUN 36, creatinine 1.5, estimated GFR was 46 mL per minute, his glucose was 99, calcium was 8.3. Total bilirubin, AST, ALT, alkaline phosphatase were normal. Total protein was 7.3, albumin 2. His white cell count was 7800, hemoglobin 9, hematocrit 28, MCV 84 and platelet count of 257,000. ASSESSMENT: 1. Major neurocognitive disorder, multifactorial, possibly Lewy body, Alzheimer, vascular with delusion, depression, behavioral disturbance for which he was seen by Dr. Ramos and he is on Zyprexa, trazodone as well as hydroxyzine. 2. Advanced Parkinson disease. 3. Functional paraplegia. 4. He has multiple pressure sores in the left trochanteric area and outer aspect of the left knee, inner aspect of the right knee. The x-ray and bone scan showed no evidence of osteomyelitis; however, has purulent drainage and surrounding erythema, for which he is now on IV vancomycin and Zosyn. 5. Acute kidney injury, likely due to vancomycin nephrotoxicity as his vancomycin trough level was 28.9. PLAN: To obviously hold the vancomycin and adjust the dose. As the pharmacist, I will scan his bladder to make sure it is not retaining urine. Start him on IV fluids for now. OCCO HOOKS MD DR: XIOMARA/que JOB#: [id number] / [id number]
[2019-04-03 04:29] VITALS: BP 146/79
[2019-04-03] MEDS: ACETAMINOPHEN 325 MG TABLET PO PRN (04:41)
[2019-04-03 05:20] VITALS: BP 146/79
[2019-04-03] MEDS: PIPERACILLIN/TAZOBACTAM 3.375 GM in IV NORMAL SALINE 50ML 50 ML IV SCH ×2 (05:20→14:00)
[2019-04-03] MEDS: ASCORBIC ACID 500 MG TABLET PO SCH (07:48)
[2019-04-03] MEDS: ATORVASTATIN CALCIUM 20 MG TABLET PO SCH (07:48)
[2019-04-03] MEDS: rOPINIRole 2 MG TABLET. PO SCH (07:48)
[2019-04-03] MEDS: MULTIVITAMIN with MINERAL TABLET. PO SCH (07:48)
[2019-04-03] MEDS: IV NORMAL SALINE 1,000ML 1,000 ML IV SCH (07:49)
[2019-04-03] MEDS: VANCOMYCIN PER PHARMACY MC PRN (08:09)
[2019-04-03] MEDS ORDERED: LACTOBACILLUS RHAMNOSUS GG 1 CAPSULE. PO SCH (09:00)
[2019-04-03] MEDS ORDERED: VANCOMYCIN 1 GM in IV NORMAL SALINE 250ML 250 ML IV SCH (09:00)
[2019-04-03 09:35] VITALS: BP 127/66
--- NOTE | 2019-04-03 21:28 | DS ---
DATE OF DISCHARGE: 04/03/2019 HISTORY OF PRESENT ILLNESS: The patient is a 68-year-old male patient who was residing at [facility], who was originally admitted on account of suicidal ideation although the patient denied any suicidal ideation; however, the patient himself has admitted that he is depressed given the state he is in and he has been unable to get up or walk and developed multiple sores. He was extensively investigated and we did actually x-rayed his hip and pelvic, both knees, and bone scan as well as arterial Doppler ultrasound. The arterial Doppler ultrasound showed the peroneal arteries could not be visualized on either side. Otherwise, no focal occlusion is demonstrated. No significant focal stenosis identified by velocity changes. There is scattered plaques bilaterally. The bone scan and x-ray showed no evidence of osteomyelitis; however, given the purulent drainage and surrounding cellulitis, the patient was started on IV antibiotic in the form of vancomycin and Zosyn. His culture of his wound grew Pseudomonas aeruginosa and mixed reyna. The patient was therefore continued on IV vancomycin and Zosyn and was transferred to [facility] to continue with IV antibiotic. Continue with wound care, nutritional support and to hopefully start the process of physical and occupational therapy. PHYSICAL EXAMINATION: GENERAL: When I saw him this afternoon, he looked well and was clearly in no apparent respiratory distress. No pallor, jaundice, cyanosis or thyromegaly. No jugular venous distension. No lower limb edema. VITAL SIGNS: Heart rate was 64, blood pressure was 127/66, temperature was 97.6, respiratory rate was 20, and oxygen saturation was 94%. HEAD, EYES, EARS, NOSE AND THROAT: Showed normocephalic, atraumatic. NECK: Supple. HEART: Showed normal first and second heart sounds. No gallop or murmur. CHEST: Clear to auscultation. No crepitation or rhonchi. ABDOMEN: Distended, soft, nontender. NEUROLOGIC: He is demented, but without any obvious lateralizing signs. All cranial nerves intact. He moves upper extremities without difficulty, has fixed flexion contraction of his both knee joints. He is mostly bedbound, chair bound. He has large stage 4 decubitus ulcer on the left trochanteric area and another one on the outer aspect of left knee and a smaller wound on the medial aspect of the right knee joint. LABORATORY DATA: Showed white cell count of 7800, hemoglobin 9.1, hematocrit 28, MCV 84 and platelet count 227,000. His chemistry showed serum sodium 139, potassium 3.8, chloride was 105, bicarbonate 26, anion gap of 8, BUN 35, creatinine 1.4, estimated GFR was 50 mL per minute. His glucose 106, calcium was 8.1. His vancomycin trough level was 17.2. Urinalysis unremarkable. DISCHARGE MEDICATIONS: He was discharged to [facility] to continue lactobacillus rhamnosus 1 capsule twice a day, vancomycin 1.5 g IV daily, piperacillin, tazobactam 3.375 grams IV q. 8h., normal saline at 100 mL per hour, Tylenol 650 mg every 6 hours as needed, ascorbic acid 500 mg once a day, atorvastatin calcium 20 mg at bedtime, carbidopa/levodopa 25/100 four times a day, hydroxyzine 25 mg every 4 hours, analgesic balm applied topically 4 times a day, multivitamin with mineral 1 tablet once a day, olanzapine 2.5 mg every 2 hours, olanzapine 5 mg every 2 hours, psychosis, quetiapine fumarate for Seroquel 25 mg at bedtime, Requip 4 mg twice a day, trazodone 50 mg at bedtime for insomnia. FINAL DISCHARGE DIAGNOSES: 1. Major neurocognitive disorder, multifactorial, possibly Lewy body, Alzheimer, vascular with delusion, depression, and behavioral disturbance, which he was seen by Dr. Ramos. He is now on Zyprexa, trazodone as well as hydroxyzine. 2. Advanced Parkinson disease. 3. Functional paraplegia. 4. He has multiple pressure sores on the left trochanteric area and on the outer aspect of the left knee and inner aspect of the right knee. X-rays and bone scan showed no evidence of osteomyelitis; however, that has purulent drainage and surrounding erythema for which he was started on IV vancomycin and Zosyn. 5. Acute kidney injury, likely to vancomycin nephrotoxicity as his vancomycin trough level was high at 28, it is improving. COCO HOOKS MD DR: XIOMARA/que JOB#: [id number] / [id number]
--- NOTE | 2019-04-04 01:47 | PN ---
DATE: 04/02/2019 PSYCHIATRIC PROGRESS NOTE This late entry 04/02/2019 covers the elements not covered in my initial note. SUBJECTIVE: Discussed with nursing staff, reviewed the chart. Overall, the patient has been more coherent and oriented, but still anxious, restless, somewhat distractable. He will be transferred for [facility] care. In the meantime, he has had some Zyprexa p.r.n. more so with sundowning. REVIEW OF SYSTEMS: Positive for tiredness, impaired ambulation. No CV, , pulmonary, eye system symptoms on review. MENTAL STATUS EXAM: The patient is oriented to himself and situation. Speech is coherent, a little pressured typical for him. Abstraction fair, computation impaired, language function intact, attention span short. Mood and affect somewhat withdrawn. LABORATORY DATA: Reviewed. IMPRESSION: Unchanged from initial note. PLAN: No change from initial note. MAN Adriana AWAN MD DR: UBALDO/[email or web address] JOB#: [id number] / [id number]
== END 2019-04-03 14:40 | DRG 682 ==
LOC: ER 07:42 → 1 SOUTH 13:41 → ER 13:50 → 1 SOUTH 14:29
PROVIDERS: ADMIT Internal Medicine; ATTEND Internal Medicine
DX: N17.9 Acute kidney failure, unspecified (principal); L89.224 Pressure ulcer of left hip, stage 4; E43 Unspecified severe protein-calorie malnutrition; F33.9 Major depressive disorder, recurrent, unspecified; R45.851 Suicidal ideations; R44.3 Hallucinations, unspecified; F05 Delirium due to known physiological condition; L03.90 Cellulitis, unspecified; F44.4 Conversion disorder with motor symptom or deficit; G20 Parkinson's disease; L89.892 Pressure ulcer of other site, stage 2; F41.9 Anxiety disorder, unspecified; F63.9 Impulse disorder, unspecified; F02.80 Dementia in other diseases classified elsewhere, unspecified severity, without behavioral disturbance, psychotic disturbance, mood disturbance, and anxiety; E78.5 Hyperlipidemia, unspecified; F01.50 Vascular dementia, unspecified severity, without behavioral disturbance, psychotic disturbance, mood disturbance, and anxiety; G25.81 Restless legs syndrome; G30.9 Alzheimer's disease, unspecified; N14.1 Nephropathy induced by other drugs, medicaments and biological substances; T36.8X5A Adverse effect of other systemic antibiotics, initial encounter; Z79.899 Other long term (current) drug therapy; Z87.891 Personal history of nicotine dependence; Z68.24 Body mass index [BMI] 24.0-24.9, adult
CPT/HCPCS: 36415; 73521; 73562; 78315; 80048; 80053; 80202; 81001; 85025; 85651; 86140; 87070; 87186; 93923; 96365; A9503; J2543; J3370; J7040; J7050; 97110; 97530; 99285-25; J7030